=== PATIENT | male | born 1965 | race Caucasian/White ===

== ENCOUNTER 2018-05-21 18:07 | Inpatient (IN) | payer MEDICAID, OTHER ==
[2018-05-21] MEDS ORDERED: LORazepam 1 MG TAB PO ONE (18:11)
--- NOTE | 2018-05-21 18:16 | EDPHY ---
H & P Time Seen by Provider: 05/21/18 18:12 HPI/ROS: CHIEF COMPLAINT: M1, asia HISTORY OF PRESENT ILLNESS: 53-year-old male arrives from care home on an M1 hold. He has bonded out of care home but was put on M1 hold prior to discharge from care home secondary to asia, medication noncompliance. States that he has been off of his lithium for 2 months. Per the M1 report he had been flooding his care home cell and had been stuffing feces under the door. He denies suicidal or homicidal ideation. He denies hallucination. Denies trauma. Denies illicit drug or alcohol use. PRIMARY CARE PROVIDER: REVIEW OF SYSTEMS: 10 systems reviewed and negative with the exception of the elements mentioned in the history of present illness PAST MEDICAL & SURGICAL HISTORY: Bipolar disorder. Prostate cancer. Prostatectomy. Chronic bilateral lower extremity lymphedema. SOCIAL HISTORY: Daily tobacco abuse. PHYSICAL EXAM (Prior to examination, patient consented to physical exam, hands were washed and my usual and customary physical exam procedures followed) 1) GENERAL: Well-developed, well-nourished, alert and oriented. Smiling. Speech pattern is rapid with flight of ideas 2) HEAD: Normocephalic, atraumatic. No hematoma no depression. 3) HEENT: Pupils equal, round, reactive to light bilaterally. Sclera anicteric. 4) NECK: Full range of motion, no meningeal signs. 5) LUNGS: Clear auscultation bilaterally, no wheezes, no rhonchi, no retractions. 6) HEART: Regular rate and rhythm, no murmur, no heave, no gallop. 7) ABDOMEN: No guarding, no rebound, no focal tenderness, negative McBurney's, negative Hitchcock's, negative Rovsing's, negative peritoneal sign, 8) MUSCULOSKELETAL: Moving all extremities, no focal areas of tenderness, no obvious trauma. No peripheral edema or discoloration. 9) BACK: No CVA tenderness, no midline vertebral tenderness, no fluctuance, no step-off, no obvious trauma, no visual or palpable abnormality. 10) SKIN: No rash, no petechiae. 11) Psychiatric: Patient is oriented X 3, he is, however he has rapid speech pattern with flight of ideas 12) NEURO: Awake, alert, and oriented to person, place and time. Answers questions appropriately. There were no obvious focal neurologic abnormalities. No cerebellar dysfunction. Cranial nerves 2 through to 12 intact. Normal steady gait. Upper and lower extremities bilaterally with strength 5 / 5, reflexes 2+. DIFFERENTIAL DIAGNOSIS: In no particular order including but not limited to polysubstance abuse, medication noncompliance, asia, psychosis, trauma - Personal History Tetanus Vaccine Date: 3yrs ago Constitutional: Initial Vital Signs Temperature (C) 36.9 C 05/21/18 18: Heart Rate 99 05/21/18 18: Respiratory Rate 20 05/21/18 18: Blood Pressure 151/82 H 05/21/18 18: O2 Sat (%) 97 05/21/18 18: O2 Delivery Mode Room Air Allergies/Adverse Reactions: cashew nut Allergy (Verified 05/21/18 18:19) doxycycline Allergy (Verified 05/21/18 18:) Penicillins Allergy (Verified 05/21/18 18:19) shellfish derived Allergy (Verified 05/21/18 18:19) Home Medications: Medication Instructions Recorded Lesslie Carbonate [Lesslie 150 mg PO BID 05/21/18 Carbonate Tab 300 mg (*)] Medical Decision Making ED Course/Re-evaluation: 6:12 p.m.: I reviewed the patient's old medical records. Patient has a history of bipolar disorder, history of prostate cancer with prostatectomy, lymph node resection with chronic bilateral lower extremity edema. He has lymphedema present today with no signs of cellulitis, no evidence of ischemia. Patient is on M1 hold, he currently does have manic behavior. He will be given benzodiazepine. He denies suicidal or homicidal ideation. 8:58 p.m. : Patient has been accepted for transfer [address] accepting physician Dr. Loomis. EMTALA paperwork completed - Data Points Laboratory Results: Laboratory Results 05/21/18 18:30 05/21/18 18:30 05/21/18 05/21/18 05/21/18 19:25 18:30 18:30 WBC RBC Hgb Hct MCV MCH MCHC RDW Plt Count MPV Neut % (Auto) Lymph % (Auto) Prentiss % (Auto) Eos % (Auto) Baso % (Auto) Nucleat RBC Rel Count Absolute Neuts (auto) Absolute Lymphs (auto) Absolute Monos (auto) Absolute Eos (auto) Absolute Basos (auto) Absolute Nucleated RBC Immature Gran % Immature Gran # Sodium 140 mEq/L mEq/L (135-145) Potassium 3.0 mEq/L L mEq/L (3.5-5.2) Chloride 109 mEq/L mEq/L (97-110) Carbon Dioxide 23 mEq/l mEq/l (22-31) Anion Gap 8 mEq/L mEq/L (6-14) BUN 13 mg/dL mg/dL (7-23) Creatinine 0.7 mg/dL mg/dL (0.7-1.3) Estimated GFR > 60 Glucose 150 mg/dL H mg/dL (70-100) Calcium 9.2 mg/dL mg/dL (8.5-10.4) Creatine Kinase 203 IU/L IU/L (0-224) Salicylates < 1.0 mg/dL L mg/dL (2.0-20.0) Urine Opiates Screen NEGATIVE (NEGATIVE) Acetaminophen < 10 mcg/mL L mcg/mL (10-30) Urine Barbiturates NEGATIVE (NEGATIVE) Ur Phencyclidine Scrn NEGATIVE (NEGATIVE) Ur Amphetamine Screen NEGATIVE (NEGATIVE) U Benzodiazepines Scrn NEGATIVE (NEGATIVE) Lesslie < 0.2 mEq/L L mEq/L (0.6-1.2) Urine Cocaine Screen NEGATIVE (NEGATIVE) U Marijuana (THC) Screen NEGATIVE (NEGATIVE) Ethyl Alcohol < 10 mg/dL mg/dL (0-10) 05/21/18 18:30 WBC 9.05 10^3/uL 10^3/uL (3.80-9.50) RBC 4.46 10^6/uL 10^6/uL (4.40-6.38) Hgb 13.5 g/dL L g/dL (13.7-17.5) Hct 38.0 % L % (40.0-51.0) MCV 85.2 fL fL (81.5-99.8) MCH 30.3 pg pg (27.9-34.1) MCHC 35.5 g/dL g/dL (32.4-36.7) RDW 12.3 % % (11.5-15.2) Plt Count 239 10^3/uL 10^3/uL (150-400) MPV 10.2 fL fL (8.7-11.7) Neut % (Auto) 66.9 % % (39.3-74.2) Lymph % (Auto) 21.2 % % (15.0-45.0) Prentiss % (Auto) 9.0 % % (4.5-13.0) Eos % (Auto) 1.9 % % (0.6-7.6) Baso % (Auto) 0.8 % % (0.3-1.7) Nucleat RBC Rel Count 0.0 % % (0.0-0.2) Absolute Neuts (auto) 6.06 10^3/uL 10^3/uL (1.70-6.50) Absolute Lymphs (auto) 1.92 10^3/uL 10^3/uL (1.00-3.00) Absolute Monos (auto) 0.81 10^3/uL H 10^3/uL (0.30-0.80) Absolute Eos (auto) 0.17 10^3/uL 10^3/uL (0.03-0.40) Absolute Basos (auto) 0.07 10^3/uL 10^3/uL (0.02-0.10) Absolute Nucleated RBC 0.00 10^3/uL 10^3/uL (0-0.01) Immature Gran % 0.2 % % (0.0-1.1) Immature Gran # 0.02 10^3/uL 10^3/uL (0.00-0.10) Sodium Potassium Chloride Carbon Dioxide Anion Gap BUN Creatinine Estimated GFR Glucose Calcium Creatine Kinase Salicylates Urine Opiates Screen Acetaminophen Urine Barbiturates Ur Phencyclidine Scrn Ur Amphetamine Screen U Benzodiazepines Scrn Lesslie Urine Cocaine Screen U Marijuana (THC) Screen Ethyl Alcohol Medications Given: Discontinued Medications Potassium Chloride (Klor Packets) 40 meq PO EDNOW ONE Stop: 05/21/18 19:26 Last Admin: 05/21/18 19:58 Dose: 40 meq Departure - Departure Disposition: [facility] IP Clinical Impression: Bipolar 1 disorder with moderate asia Condition: Fair Referrals: Patient,NotPresent [Unknown] - As per Instructions
[2018-05-21 18:41] LABS: PLATELET COUNT 239 10^3/uL (150-400)
[2018-05-21 18:54] LABS: CREATINE KINASE 203 IU/L (0-224)
[2018-05-21] MEDS ORDERED: POTASSIUM CL 20 MEQ PKT PO ONE (19:25)
--- NOTE | 2018-05-21 21:11 | ASMTTLCEVL ---
TLC Evaluation - Basic Information Evaluation Start Date and 05/21/2018 08:00 PM Time Hospital Status Answers: M1 Hold 72-hr M1 Hold Start Date 05/21/2018 03:30 PM and Time Patient statement Notes: An accumulation of series of events that started in November of 2016 when I was diagnosed with prostate cancer. Narrative Notes: Pt is a 53 year old male who presented to [facility] on an M1 Hold from penitentiary. Pt bonded out of penitentiary but was placed on an M1 prior to discharge. Per M1 hold, He has a history of bipolar with asia. Stopped Bardwell in April last year. 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 He is presenting as manic at this time. He has flooded his cell, yelling at staff and pushed feces through the cell door. He received a [place] haile in court and presents with no ability to care for himself. He is gravely disabled and unmedicated. When this greeting card writer met with pt, he appeared tangential with pressured speech and labile. Pt states he had been arrested for impulsive behavior but was unable to clearly describe what happened. Pt did state that the episodes that led up to his incarceration his family Im seen as crazy. Pt started talking about not having family with him for [place] then began crying but was unable to provide more information. Pt denied SI and stated, Far from it. Towards the end of this evaluation, pt stated, Im gonna stop sandra you are agitating me. Pt then stated he needed a warm towel for his hands because he got edema from the agitation. Diagnosis History Notes: Pt reported he was diagnosed with bipolar disorder and stated, One psychiatrist diagnosed me with bipolar disorder, Dr. Galicia from [facility] because my parents wanted me institutionalized. Hes now. Prior suicide attempts Notes: Pt denied any prior attempts and stated he has only had thoughts. Prior hospitalizations Notes: Pt denied any prior hospitalizations. Treatment Responses Notes: Unknown History of violence Notes: Pt denied an HI. Therapist: Yani-psychologist. Psychiatrist: DARLYN Still Medications (name, dosage, route, freq uency) Notes: Pt has been off his mediations since April 2017. Pt was on Bardwell 900mg and Abilify. Allergies/Reaction Notes: Cashew nuts, doxycycline, penicillins, shellfish derived Sleep Notes: Pt stated he sleeps, fantastic. Appetite Notes: Pt reports, my weight is the best. Medical/Surgical history Notes: Pt has a hx of prostate cancer and had his prostate removed. Substance use history (frequency, intensity, his tory, duration) Notes: Pt state he has been clean and sober since 2012. Pt reports he is part of the AA community and attends meetings regularly. Utox was negative and bal was.0. Family composition Notes: Pt reports he has no family here in [place]. However, pt later stated he has a son in [place] who is 22 and a daughter age 20 who attends Family psychiatric/substance abuse history Notes: Pt stated his great uncle was dx bipolar and he committed suicide. Developmental history Notes: Unable to obtain hx. Marital status/children Notes: Pt is of 13 years and has 2 adult children. Living situation Notes: Pt states he lives in [place] but will be moving into the family property. Sexual history/orientation Notes: Pt identifies as heterosexual Peer support/family strengths Notes: Pt stated he has a good support system through the community. Education level/history Notes: Unable to obtain. 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 Pt is not currently working. Notes: None Legal Notes: Per staff at [facility], pt was incarcerated for criminal mischief and disorderly conduct. Pt was incarcerated from September 21, 2017-until today May 21, 2018. Jehovah'S Witness/Spiritual Notes: Unable to assess. Leisure Notes: I tried to get a job doing social [employer]. Im [place] go around the world. Not just to [place] but also [place]. Collateral Notes: Brother Gato Albert [phone]. Gato is on his way to [place] and will be arriving at 11pm. Patient's strengths Answers: Intelligent (Please select at least TWO strengths): Supportive Family TLC Evaluation - Mental Status Exam Appearance: Answers: Disheveled Eye Contact: Answers: Absent Mood: Answers: Irritable Labile Affect: Answers: Agitated Cheerful Happy Labile Behavior: Answers: Cooperative Talkative Speech: Answers: Relevant Irrelevant Clear Unclear Pressured Thought Process: Answers: Tangential Insight: Answers: Poor Judgement: Answers: Poor Manic Signs/Symptoms Answers: Mood Swings Pressured Speech Current Stage of Change Answers: Maintenance Pt reported to have Answers: No suicidal/self-injuring ideation/behavior? Pt reported to be making Answers: No suicidal/self-injuring threats? Pt reported to have Answers: No aggression/assault ideation/behavior? Pt reported to be making Answers: No aggression/assault threats? Pt exhibits inability to Answers: Yes care for self/grave disability? Ideation/behavior is Answers: Yes chronic? History of Answers: No suicidal/self-injuring ideation, behavior, or threats? History of Answers: No aggressive/assaultive ideation, behavior, or threats? History of serious Answers: No physical harm to self/others while in treatment setting? TLC Evaluation - Suicide/Homicide Risk Suicide Risk Factors: Answers: < 20 or > 40 Years of Age Bipolar Disorder Homicide/violence risk Answers: None factors: Current Suicidal Answers: No Ideation? Current Suicidal Ideation Answers: No in the Past 48 Hours? Current Suicidal Ideation Answers: No in the Past Month? Current Suicidal Answers: No Ideation, Worst Ever? Suicide Internal Answers: Absence of Psychosis Protective Factors: Suicide External Answers: Responsibility to Protective Factors: Children Social Support Ranking of patient's Answers: Low suicidal risk: Ranking of patient's Answers: Low homicidal risk: TLC Evaluation - Wrap-up BDI Total Score: Unable to complete BSS Total Score: Unable to complete AXIS I Diagnosis (include DSM-V and ICD-10 codes), must also be entered in [employer], which is the source of truth. Notes: Bipolar I Disorder, severe 296.43 (F31.13) In consultation with [facility] ED physician, Iván Santos MD and on-call psychiatrist, Puja Loomis MD, both concurred that pt appears to meet 27-65 criteria requiring psychiatric hospitalization as pt appears to be at risk of harm to self due to a mental illness condition. Pt was given the 3[facility] prohibited belongings list while in the ED. Evaluation End Date and 05/21/2018 09:10 PM Time (HH:CECILY): Date Signed: 05/21/2018 09:10 PM Electronically Signed By:Jacklyn Domingo
--- NOTE | 2018-05-21 21:11 | ASMTTCLDSP ---
TLC Discharge Disposition Disposition: Answers: Admit Discharge Concerns/Recommendations: Notes: In consultation with [facility] ED physician, Iván Santos MD and on-call psychiatrist, Puja Loomis MD, both concurred that pt appears to meet 27-65 criteria requiring psychiatric hospitalization as pt appears to be at risk of harm to self due to a mental illness condition. Pt was given the 3N prohibited belongings list while in the ED. Was patient given the Answers: Yes Inpatient Behavioral Health Prohibited Belongings List while in the ED? For inpatient Puja Loomis MD admission, the following psychiatrist agreed to accept patient for admission to Behavioral Health ([facility]): Date Signed: 05/21/2018 09:11 PM Electronically Signed By:Jacklyn Domingo
[2018-05-21] MEDS ORDERED: MAGNESIUM HYDROXIDE 30 ML UDCUP PO PRN (22:44)
[2018-05-21] MEDS ORDERED: LORazepam 0.5 MG TAB PO PRN (22:44)
[2018-05-21] MEDS ORDERED: MAG HYDROX/AL HYDROX/SIMETH 30 ML UDCUP PO PRN (22:44)
[2018-05-21] MEDS ORDERED: ACETAMINOPHEN 325 MG TAB PO PRN (22:45)
[2018-05-21] MEDS ORDERED: OLANZapine 5 MG TAB PO PRN (22:45)
[2018-05-22] MEDS ORDERED: OLANZapine 5 MG TAB PO PRN (06:21)
[2018-05-22] MEDS ORDERED: LORazepam 0.5 MG TAB PO PRN (06:21)
[2018-05-22 07:06] VITALS: BP 145/84
[2018-05-22] MEDS ORDERED: HALOPERIDOL LACT 5 MG/ML INJ ONE (07:16)
[2018-05-22] MEDS ORDERED: LORazepam 2 MG/ML INJ ONE (07:16)
[2018-05-22] MEDS: HALOPERIDOL LACT 5 MG/ML INJ IM PRN ×2 (07:20→16:00)
[2018-05-22] MEDS: LORazepam 2 MG/ML INJ IM PRN ×2 (07:20→16:00)
--- NOTE | 2018-05-22 07:57 | PDMN ---
Medical Necessity Medical necessity: Pt meets IP criteria as of 05/21/2018 per and [facility] [id number] ( Bipolar Disorders, Adult; Inpatient Care); est los > 2 mn for ongoing tx and management of bipolar type I disorder, pt has not been taking his medication x 2 months and is now manic and gravely disabled, present on an M1 hold.
--- NOTE | 2018-05-22 12:47 | BAPA ---
[f rep st] ADMISSION PSYCHIATRIC ASSESSMENT DATE OF SERVICE: 05/22/2018 CHIEF COMPLAINT: "I don't need to be here. I'm going to call my friend right now. I'm going to leave here. I'm going to walk to the bus station. I'm not going to take medications. I'm not manic." HISTORY OF PRESENT ILLNESS: Patient refuses to meet with this BANK OFFICER for full psychiatric evaluation and history. From the ED note dated 05/21/2018, the patient presented from intermediate to the emergency room on an M1 hold. The patient was recently bonded out of intermediate but was placed on an M1 hold prior to discharge from intermediate secondary to asia and history of medication nonadherence. The patient reported that he has been off lithium for a year. M1 hold stated that patient was flooding intermediate cell and stuffing feces under his door. The patient denied suicidal ideation and denied homicidal ideation. The patient denied hallucinations. Patient denied trauma. The patient denied use of illicit drugs or alcohol use prior to presenting to the emergency room. From the [facility] evaluation dated 05/21/2018, patient was placed on a 72-hour M1 hold with start date and time of 05/21/2018 at 3:30 p.m. 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 Collateral was collected from patient's brother. Brother reported that the patient experiences long-term manic episodes. The patient was tangential with pressured speech during [facility] evaluation. During the [facility] evaluation, the patient stated, "I'm going to stop because you are agitating me." PAST PSYCHIATRIC HISTORY: From the [facility] evaluation, patient has a past psychiatric history of bipolar disorder. The patient denied any suicide attempts. The patient denied any history of prior hospitalizations. The patient reportedly has not taken lithium medication since April of 2017, reported that patient was prescribed lithium 900 mg and Abilify dose unknown. ALLERGIES: 1. Cashew nut. 2. Doxycycline. 3. Penicillins. 4. Shellfish derivative. CURRENT MEDICATIONS: 1. Tylenol 650 mg p.o. q.6 hours p.r.n. 2. Haldol 10 mg IM q.4 hours p.r.n. 3. [place] ER 900 mg p.o. at bedtime. 4. Ativan 1 mg p.o. q.4 hours p.r.n. 5. Ativan 2 mg IM q.4 hours p.r.n. 6. Maalox syrup 30 mL p.o. q.6 hours p.r.n. 7. Milk of magnesia 30 mL p.o. daily p.r.n. 8. Zyprexa 10 mg p.o. q.4 hours p.r.n. PAST MEDICAL HISTORY: From the [facility] evaluation, patient has a history of prostate cancer and his prostate has been removed. SOCIAL HISTORY: From the [facility] evaluation, the patient reported he has no family in [place], then later on in the [facility] evaluation, patient stated he has a son in [place], [place], age 22, and daughter, age 20. The patient is for 13 years and has 2 adult children. The patient reported he currently lives in [place], [place], but will be moving into the family property. Patient identified his sexual orientation as heterosexual. The patient reported having a good support system through . 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 Per [employer] intermediate staff, the patient was incarcerated for criminal mischief and disorderly conduct. The patient was incarcerated from 09/21/2017 until 2018. SUBSTANCE USE HISTORY: From the [facility] evaluation, patient reported that he has been clean and sober from alcohol since 2012. The patient reported he is part of the community and attends meetings regularly. The patient's U tox was negative and blood alcohol level upon admission was zero. FAMILY PSYCHIATRIC HISTORY: From the [facility] evaluation, patient reported his great uncle was diagnosed with bipolar and his great uncle completed suicide. ADMISSION LABS AND STUDIES: 1. CBC within normal limits except hemoglobin was low at 13.5, hematocrit low at 38.0, absolute monocytes were elevated at 0.81. 2. BMP within normal limits except potassium was low at 3.0 and glucose is elevated at 150. 3. Hemoglobin A1c within normal limits at 5.2. 4. Liver function within normal limits. 5. Total protein low at 6.2. 6. Lipid panel within normal limits except cholesterol was low at 114, LDL cholesterol calculated was low at 55, non-HDL cholesterol was low at 64. 7. Toxicology screen was negative for all substances screen and negative for ethyl alcohol. 8. [place] undetectable, less than 0.2. MENTAL STATUS EXAM: The patient is a well-nourished male looking stated chronological age. Attire is appropriate. Dress is hospital garb. Grooming status is appropriate. Ambulation is independent. Gait is normal and coordinated. Posture is tense, threatening. Eye contact is inappropriate, excessive, and staring. Motor activity is overactive with purposeful, organized , coordinated movements with no involuntary movements noted. Attitude is uncooperative, guarded, defensive, hostile, and angry. The patient appears disinterested, distractible, and does not relate well to this interviewer. Language production is spontaneous. Rate is pressured. Latency of response is shortened with irritable, angry tone. Articulation is clear. Unable to appropriately assess mood at this time. The patient's affect appears to be irritable, anxious, and angry. The patient's thought process is nonlinear and illogical with loose associations, tangential thought. The patient does not report suicidal thoughts. The patient does not report homicidal thoughts. The patient denies auditory or visual hallucinations. The patient denies delusions. Patient does not appear to be attending to internal stimuli. The patient is oriented to person and place. The patient's attention and concentration are poor. The patient's insight and judgment are poor. Unable to appropriately assess cognitive function at this time. DIAGNOSIS: Based on the patient's history and current presentation, the patient 's diagnosis is bipolar 1 disorder, severe, current asia. FORMULATION: The patient is a 53-year-old male, single, unemployed, recently left [facility] on a [place] haile, and presents to our hospital involuntarily on an M1 hold due to being gravely disabled. The patient requires continued care because of current acute asia. The patient presents with problems of asia and medication nonadherence since April of 2017. The patient's life has been affected by these problems including recently being arrested and jailed. The patient is unable to appropriately care for himself and communicate his basic needs. The exacerbation of symptoms was likely preceded by patient's nonadherence to medications for maintenance of bipolar disorder. The patient has a past psychiatric history of bipolar disorder that was most recently treated with lithium 900 mg and Abilify. The Abilify dose is unknown. The patient is a high safety risk due to current acute asia. Protective factors while hospitalized include ongoing safety checks, active involvement in treatment, and support from our treatment team. Patient could benefit from inpatient hospitalization for safety, crisis stabilization, and medication evaluation. PLAN: 1. Medications: Will continue current medications listed above. No other medication changes at this time as more time is needed to determine ongoing tolerability and efficacy. Plan is to continue to observe patient for response and side effects from medications, and ongoing monitoring and evaluation. 2. Review with patient informed consent and recommendations for psychotropic medication treatment listed below 3. Labs: no additional labs at this time 4. Therapy: continue milieu and group therapy 5. Further investigation including gathering information from patients relatives and review of past case records to inform treatment plan. 6. Safety/Wellness plan and follow-up outpatient appointments to be established prior to discharge. Next steps are for patient to meet with care giver to plan a safe discharge plan and establish outpatient services for ongoing treatment. 7. Confer with inpatient treatment team regarding treatment plan. 8. Address psychosocial stressors by meeting with resident care manager rn to establish discharge plan including referrals for outpatient services. 9. Legal status: M1 10. Consider discharge next week if patient is in stable condition, safe, and has a safe discharge plan. ESTIMATED LENGTH OF STAY: 7-10 days PSYCHOTROPIC MEDICATION TREATMENT INFORMED CONSENT and RECOMMENDATIONS: Review nature of condition, diagnosis, and prognosis. Review nature and purpose of psychotropic medication treatment. Review type of psychotropic medications being ordered. Review risk and benefits of psychotropic medication treatment. Review probable length of time will need to take medications. Review risk and benefits of not undergoing psychotropic medication treatment. Review alternative treatments to psychotropic medications. Review psychotropic medications contraindications, drug-drug interactions, side effects, and importance of reporting any side effects to a psychiatric provider or nurse during inpatient hospitalization, and upon discharge to patients psychiatric outpatient provider, primary care provider, or other health rn critical care. Review importance of asking a nurse, psychiatric provider, or primary care provider any questions or problems concerning the psychotropic medications. Verify patient understands the information that has been provided, and understands, accepts, and agrees to psychotropic medications. Review patients safety plan and importance of patient to communicate to staff while hospitalized if patient is ever a danger to self/others, or unable to care for self, and upon discharge, the importance for patient to contact [facility] or [facility], or go to the nearest emergency room, if patient is ever a danger to self/others, or unable to care for self. Recommend that upon discharge patient establish medication management treatment with a psychiatric provider, establishes routine therapy appointments, and follow-up with primary care provider. Verify patient understands and agrees to these recommendations. /[id number]/MODL MTDD
--- NOTE | 2018-05-22 13:07 | BCON ---
[f rep st] BEHAVIORAL HEALTH CONSULTATION INTERNAL MEDICINE CONSULTATION DATE OF CONSULTATION: 05/22/2018 REFERRING PHYSICIAN: Dr. Loomis REASON FOR REFERRAL: Medical clearance for inpatient behavioral health stay. HISTORY OF PRESENT ILLNESS: This patient was released on MD haile from the assisted due to erratic and agitated behavior. Upon release from assisted he was brought to the emergency department on an M1 hold. He was evaluated by the Mental Health Team and found to be acutely manic, and admitted for further psychiatric care. Today on the inpatient behavioral health unit he had extremely agitated behavior , needed to be tackled, was given emergency medications, and is in a seclusion cell. He complains of thoracic pain and says that he has broken ribs. PAST MEDICAL HISTORY: 1. Bipolar disorder. 2. Prostate cancer. 3. Lymphedema. 4. Cellulitis of the lower extremities. 5. Concussion. PAST SURGICAL HISTORY: He has had a prostatectomy. MEDICATIONS: 1. Prior to admission, he has been noncompliant with lithium for several months. 2. Furosemide, which he reports had some effect on his edema. ALLERGIES: Listed to cashews, doxycycline, penicillin, and shellfish. SOCIAL HISTORY: He has been incarcerated on and off since September of 2017. 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 He is a smoker. FAMILY HISTORY: Noncontributory. PHYSICAL EXAM: VITAL SIGNS: Blood pressure is 148/84, heart rate is 94, respiratory rate is 16, oxygen saturation is 97% on room air. Temperature is 36.3 degrees centigrade. His weight is 94.3 kg for a body mass index of 26.7. GENERAL: This is a somewhat overweight-appearing man who appears older than his chronologic age. Cooperative and in no acute distress. HEENT: Extraocular movements are intact. Pupils are constricted, but reactive and round. Mucous membranes are moist. Dentition is in good condition. He has an uncrowded airway, Mallampati class 1. NECK: Supple. HEART: Regular rate and rhythm with no murmurs, rubs, or gallops. LUNGS: He has reduced respiratory excursion and complains of discomfort with deep inhalation. There are no wheezes, rhonchi, or rales. ABDOMEN: Benign. EXTREMITIES: There is no cyanosis or clubbing. He has 2+ to 3+ edema bilaterally to the lower extremities. NEUROLOGIC: He is alert. He is oriented to the month, the year, his location. He is off by 1 on the date of the month. Cranial nerves 2-12 are grossly intact. There is no focal weakness. Sensation is intact to light touch. There is no tremor. LABORATORY STUDIES: From the emergency department: CBC showed mild anemia with a hemoglobin of 13.5 and hematocrit of 38. His MCV was normal, as were MCH , MCHC and RDW. Serum chemistry showed hypokalemia with a potassium of 3. Glucose was elevated at 150, but this was likely not fasting. Hemoglobin A1c was 5.2. Liver function tests were normal. Creatine kinase was normal. Lipid panel showed a low cholesterol at 114, a low LDL at 55 and normal HDL. Toxicology screen in the serum was negative for salicylates, acetaminophen and ethyl alcohol. [place] level was undetectable. Toxicology in the urine was negative for any substances of abuse. ASSESSMENT/RECOMMENDATIONS: 1. Mental health issues pending further evaluation and management per Psychiatry and the Mental Health Team. 2. Edema, for which he reports he had furosemide. Loop diuretics as well as thiazide diuretics are relatively contraindicated with lithium, since they can raise the serum level and impair excretion. I will treat him with Spironalactone 25 mg daily, which should also help his blood pressure. 3. Regarding elevated blood pressure, continue monitoring. Unclear whether there is any history of hypertension. 4. Chest wall pain with report of broken ribs. He is not in any respiratory distress and shows no signs of pneumothorax. Acetaminophen has been ordered and this is appropriate to continue. 5. Tobacco dependence syndrome: He should be encouraged to quit smoking. I see no medical contraindications to this patient's continued stay on the inpatient behavioral health unit, or to any psychiatric medications or procedures. Thank you very much for including me in the care of this patient, and please do not hesitate to contact me or the Hospitalist Service should there be need for further medical evaluation. /[id number]/MODL MTDD
[2018-05-22] MEDS ORDERED: OLANZapine DISINTEGR 10 MG TAB PO SCH (15:00)
[2018-05-22] MEDS ORDERED: LITHIUM CARBONATE ER 300 MG TAB PO ONE (15:45)
[2018-05-23] MEDS ORDERED: SPIRONOLACTONE 25 MG TAB PO SCH (09:00)
[2018-05-23] MEDS ORDERED: LITHIUM CARBONATE ER 300 MG TAB PO SCH (21:00)
== END 2018-05-22 21:21 | DRG 885 ==
LOC: EDUNIT# → BBEH 22:15
PROVIDERS: ADMIT Psychiatry & Neurology Behavioral Neurology & Neuropsychiatry; ATTEND Psychiatry & Neurology Behavioral Neurology & Neuropsychiatry
DX: F31.5 Bipolar disorder, current episode depressed, severe, with psychotic features (principal); T43.506A Underdosing of unspecified antipsychotics and neuroleptics, initial encounter; R07.9 Chest pain, unspecified; F17.200 Nicotine dependence, unspecified, uncomplicated; Z85.46 Personal history of malignant neoplasm of prostate
CPT/HCPCS: 80305; G0480; J1200; J1630; J2060

== ENCOUNTER 2018-05-22 21:37 | Emergency (ER) | payer MEDICAID, OTHER ==
[2018-05-22 23:48] VITALS: BP 103/54
--- NOTE | 2018-05-23 02:25 | EDPHY ---
H & P Stated Complaint: pt sent to ED from for being too violent, pt sleeping on arrival Time Seen by Provider: 05/22/18 21:52 HPI/ROS: Chief complaint: Bipolar with asia History of present illness: This is a 53-year-old male who was seen in the emergency department last night. He has history of bipolar and was having a manic episode. He was transferred to [address] [place] [address] for further evaluation and care last night. Apparently patient became more agitated last night and throughout the day today to the point where there was concern it was not safe for staff and him to be there. He was transferred here. On my evaluation he easily awakes. He states he feels fine. He denies any specific complaints. [address] [place] [address] is working on transfer to [facility]. Review of systems: A 10 point review of systems was obtained and other than described above was negative - Personal History Current Tetanus/Diphtheria Vaccine: Yes Current Tetanus Diphtheria and Acellular Pertussis (TDAP): Yes Tetanus Vaccine Date: 3yrs ago - Medical/Surgical History Hx Asthma: No Hx Chronic Respiratory Disease: No Hx Diabetes: No Hx Cardiac Disease: No Hx Renal Disease: No Hx Cirrhosis: No Hx Alcoholism: Yes Hx HIV/AIDS: No Hx Splenectomy or Spleen Trauma: No Other PMH: ptsd, bipolar, prostate ca, etoh abuse - Social History Smoking Status: Heavy smoker - Physical Exam Exam: General Appearance: Alert, nontoxic. Eyes: Pupils equal and round no pallor or injection. ENT, Mouth: Mucous membranes moist. Respiratory: There are no retractions, lungs are clear to auscultation. Cardiovascular: Regular rate and rhythm. Gastrointestinal: Abdomen is soft and non tender, no masses, bowel sounds normal. Neurological: Alert. Strength and sensation intact and symmetrical. Skin: Warm and dry, no rashes. Musculoskeletal: Neck is supple non tender. Extremities are symmetrical, full range of motion. Psychiatric: Resting calmly in bed. No agitation. Constitutional: Initial Vital Signs Temperature (C) 37.2 C 05/22/18 21:45 Heart Rate 63 05/22/18 21:45 Respiratory Rate 18 05/22/18 21:45 Blood Pressure 92/55 L 05/22/18 21:45 O2 Sat (%) 97 05/22/18 21:45 O2 Delivery Mode Room Air Allergies/Adverse Reactions: cashew nut Allergy (Verified 05/22/18 21:45) doxycycline Allergy (Verified 05/22/18 21:45) Penicillins Allergy (Verified 05/22/18 21:45) shellfish derived Allergy (Verified 05/22/18 21:45) Home Medications: Medication Instructions Recorded NK [No Known Home Meds] 05/22/18 Medical Decision Making ED Course/Re-evaluation: Patient is seen under the supervision of my secondary supervising physician Dr. Wilma Bernardo. Patient is transferred to the emergency department from [address] [place] [address] out concern for his safety and staff safety. On my evaluation patient is easily arousable. He has no complaints. Initially physical exam with mild hypotension. Vital signs have improved. He is not tachycardic. Again he has no complaints. I do not believe re-evaluation with laboratory studies are necessary at this time. [facility] has accepted this patient in transfer. Dr. Johnson will be the accepting physician. EMTALA forms have been filled out. Departure - Departure Disposition: Other Psych, Not [place] Condition: Good Referrals: NONE *PRIMARY CARE P,. [Primary Care Provider] - As per Instructions
== END 2018-05-22 23:20 ==
LOC: EDUNIT#
DX: F30.8 Other manic episodes (principal)